=== PATIENT | male | born 1965 | race Caucasian/White ===

== ENCOUNTER → 2021-12-19 11:53 | Outpatient (BNVA) | payer OTHER, SELFPAY | PROVIDERS: PCP Surgery; Referring Provider Family Medicine; Visit Provider Internal Medicine | DX: L40.9 Psoriasis, unspecified (principal) | CPT/HCPCS: 80053; 85025; 85651; 86140; 86200; 86431; 86480; 86704; 86803; 87340 ==

== ENCOUNTER → 2024-11-24 10:28 | Outpatient (BNVA) | payer OTHER, SELFPAY | PROVIDERS: PCP Surgery; Visit Provider Internal Medicine Rheumatology | DX: M17.11 Unilateral primary osteoarthritis, right knee (principal); Z79.899 Other long term (current) drug therapy; M05.79 Rheumatoid arthritis with rheumatoid factor of multiple sites without organ or systems involvement; L40.0 Psoriasis vulgaris; Z71.85 Encounter for immunization safety counseling; M76.41 Tibial collateral bursitis [Pellegrini-Stieda], right leg; R93.6 Abnormal findings on diagnostic imaging of limbs; M25.761 Osteophyte, right knee | CPT/HCPCS: 36415; 73562; 80076; 82565; 85025; 85651; 86140; 86480; 86704; 86803; 87340 ==

== ENCOUNTER → 2025-02-09 13:54 | Outpatient (BNVA) | payer OTHER, SELFPAY | PROVIDERS: PCP Surgery; Visit Provider Internal Medicine Rheumatology | DX: Z79.899 Other long term (current) drug therapy (principal) | CPT/HCPCS: 36415; 80076; 82565; 85025; 85651; 86140 ==